=== PATIENT | female | born 1985 | race Caucasian/White ===

== ENCOUNTER 2018-04-15 16:34 | Emergency (ER) | payer BC ==
--- NOTE | 2018-04-15 16:47 | ERPHSYRPT ---
- History of Present Illness Source: patient <LATRICE ESPAÑA - Last Filed: 04/15/18 18:42> <EMILY COATS - Last Filed: 04/15/18 20:56> - History of Present Illness Time Seen by Provider: 04/15/18 16:45 Physician History: mild to mod blood in urine and frequency, lower abdominal cramps, no injury, no fever, no NV, hx renal stones, lmp 5/ (LATRICE ESPAÑA) Allergies/Adverse Reactions: No Known Drug Allergies Allergy (Verified 04/15/18 16:53) - Review of Systems Constitutional: No Fever Eyes: No Vision Changes Ears, Nose, & Throat: No Epistaxis Respiratory: No Dyspnea Cardiac: No Chest Pain Abdominal/Gastrointestinal: Abdominal Pain, No Vomiting Genitourinary Symptoms: Frequency, Hematuria Musculoskeletal: No Back Pain Neurological: No Dizziness <LATRICE ESPAÑA - Last Filed: 04/15/18 18:42> - Physical Exam General Appearance: no apparent distress Ears, Nose, Throat Exam: moist mucous membranes Respiratory Exam: No respiratory distress Gastrointestinal/Abdomen Exam: soft, No distention, No rebound Back Exam: No CVA tenderness Extremity Exam: normal range of motion Neurologic Exam: alert, oriented x 3, cooperative Skin Exam: warm, dry <LATRICE ESPAÑA - Last Filed: 04/15/18 18:42> - Nursing Vital Signs Nursing Vital Signs: Initial Vital Signs Temperature 97.9 F 04/15/18 16:37 Pulse Rate 71 04/15/18 16:37 Blood Pressure 129/93 04/15/18 16:37 O2 Sat by Pulse Oximetry 100 04/15/18 16:37 Pain Scale Pain Intensity 4 - CT Exams Abdomen/Pelvis CT Interpretation: Tele-radiologist Report, Other (mild urinary wall thickening ; possible cystitis. no kidney stones. per Dr German. small amt of fluid in cul-de- sac from possible ruptured or leaking cyst.) <EMILY COATS - Last Filed: 04/15/18 20:56> Ordered Tests: Active Orders 24 hr Category Date Time Status ABDOMEN AND PELVIS W/0 CONTRAS [CT] Stat Exams 04/15/18 18:23 Taken CBC W DIFF Stat Lab 04/15/18 16:57 Completed CMP Stat Lab 04/15/18 16:57 Completed CULTURE,URINE Stat Lab 04/15/18 16:50 Received HCG QUALITATIVE,SERUM Stat Lab 04/15/18 16:57 Completed UA W/ MICROSCOPIC Stat Lab 04/15/18 16:50 Completed Medication Summary Discontinued Medications Generic Name Dose Route Start Last Admin Trade Name Ilene PRN Reason Stop Dose Admin Ketorolac Tromethamine Confirm 04/15/18 18:37 Toradol 30 Mg Injection Administered 04/15/18 18:38 Dose 30 mg .ROUTE .STK-MED ONE Ketorolac Tromethamine 30 mg 04/15/18 18:43 04/15/18 18:47 Toradol 30 Mg Injection IM 04/15/18 18:44 30 mg STAT ONE Administration Lab/Rad Data: Laboratory Result Diagrams 04/15/18 16:57 04/15/18 16:57 Laboratory Results 04/15/18 04/15/18 04/15/18 Range/Units 16:57 16:57 16:57 WBC 9.2 (4.0-10.5) K/mm3 RBC 4.88 (4.1-5.4) M/mm3 Hgb 12.8 (12.0-16.0) gm/dl Hct 39.3 (35-47) % MCV 80.5 (78-100) fl MCH 26.2 (26-32) pg MCHC 32.6 (32-36) g/dl RDW 15.2 H (11.5-14.0) % Plt Count 328 (150-450) K/mm3 MPV 9.9 H (6-9.5) fl Gran % 73.7 H (36.0-66.0) % Eos # (Auto) 0.16 (0-0.5) Absolute Lymphs (auto) 1.80 (1.0-4.6) Absolute Monos (auto) 0.42 (0.0-1.3) Lymphocytes % 19.6 L (24.0-44.0) % Monocytes % 4.6 (0.0-12.0) % Eosinophils % 1.7 (0.00-5.0) % Basophils % 0.4 (0.0-0.4) % Absolute Granulocytes 6.76 (1.4-6.9) Basophils # 0.04 (0-0.4) Sodium 141 (137-145) mmol/L Potassium 3.7 (3.5-5.1) mmol/L Chloride 103 (98-107) mmol/L Carbon Dioxide 27 (22-30) mmol/L Anion Gap 14.1 (5-15) MEQ/L BUN 16 (7-17) mg/dL Creatinine 0.77 (0.52-1.04) mg/dL Estimated GFR > 60.0 ML/MIN Glucose 100 (74-106) mg/dL Calcium 9.7 (8.4-10.2) mg/dL Total Bilirubin 0.40 (0.2-1.3) mg/dL AST 27 (14-36) U/L ALT 27 (0-35) U/L Alkaline Phosphatase 70 (38-126) U/L Serum Total Protein 7.8 (6.3-8.2) g/dL Albumin 4.7 (3.5-5.0) g/dL Serum , Qual NEGATIVE (Negative) Ur Collection Type Urine Color (YELLOW) Urine Appearance (CLEAR) Urine pH (5-6) Ur Specific Russell (1.005-1.025) Urine Protein (Negative) Urine Ketones (NEGATIVE) Urine Blood (0-5) Charbel/ul Urine Nitrite (NEGATIVE) Urine Bilirubin (NEGATIVE) Urine Urobilinogen (0-1) mg/dL Ur Leukocyte Esterase (NEGATIVE) Urine Microscopic RBC (0-2) /HPF Urine Microscopic WBC (0-5) /HPF Urine Bacteria (NEGATIVE) /HPF Urine Culture Reflexed (NO) Urine Glucose (NEGATIVE) mg/dL Specimen Received 04/15/18 Range/Units 16:50 WBC (4.0-10.5) K/mm3 RBC (4.1-5.4) M/mm3 Hgb (12.0-16.0) gm/dl Hct (35-47) % MCV (78-100) fl MCH (26-32) pg MCHC (32-36) g/dl RDW (11.5-14.0) % Plt Count (150-450) K/mm3 MPV (6-9.5) fl Gran % (36.0-66.0) % Eos # (Auto) (0-0.5) Absolute Lymphs (auto) (1.0-4.6) Absolute Monos (auto) (0.0-1.3) Lymphocytes % (24.0-44.0) % Monocytes % (0.0-12.0) % Eosinophils % (0.00-5.0) % Basophils % (0.0-0.4) % Absolute Granulocytes (1.4-6.9) Basophils # (0-0.4) Sodium (137-145) mmol/L Potassium (3.5-5.1) mmol/L Chloride (98-107) mmol/L Carbon Dioxide (22-30) mmol/L Anion Gap (5-15) MEQ/L BUN (7-17) mg/dL Creatinine (0.52-1.04) mg/dL Estimated GFR ML/MIN Glucose (74-106) mg/dL Calcium (8.4-10.2) mg/dL Total Bilirubin (0.2-1.3) mg/dL AST (14-36) U/L ALT (0-35) U/L Alkaline Phosphatase (38-126) U/L Serum Total Protein (6.3-8.2) g/dL Albumin (3.5-5.0) g/dL Serum , Qual (Negative) Ur Collection Type VOID Urine Color PINK (YELLOW) Urine Appearance CLEAR (CLEAR) Urine pH 6.0 (5-6) Ur Specific Russell 1.005 (1.005-1.025) Urine Protein TRACE (Negative) Urine Ketones NEGATIVE (NEGATIVE) Urine Blood 250 (0-5) Charbel/ul Urine Nitrite NEGATIVE (NEGATIVE) Urine Bilirubin NEGATIVE (NEGATIVE) Urine Urobilinogen NORMAL (0-1) mg/dL Ur Leukocyte Esterase 1+ (NEGATIVE) Urine Microscopic RBC >100 (0-2) /HPF Urine Microscopic WBC 5-10 (0-5) /HPF Urine Bacteria FEW (NEGATIVE) /HPF Urine Culture Reflexed YES (NO) Urine Glucose NEGATIVE (NEGATIVE) mg/dL Specimen Received 04/15/18 1650 <LATRICE ESPAÑA - Last Filed: 04/15/18 18:42> - Progress Progress: improved Counseled pt/family regarding: lab results, diagnosis, rad results <EMILY COATS - Last Filed: 04/15/18 20:56> - Progress Progress Note: 04/15/18 18:[address] Coats at 19:00 (LATRICE ESPAÑA) 04/15/18 19:20 Pt care discussed and care accepted from Dr España at 19:00. (EMILY COATS) <LATRICE ESPAÑA - Last Filed: 04/15/18 18:42> - Departure Time of Disposition: 20:51 Departure Disposition: Home Critical Care Time: No <EMILY COATS - Last Filed: 04/15/18 20:56> - Departure Clinical Impression: Urinary tract infection with hematuria Condition: Stable Referrals: DOMINIC MASCORRO MD [Primary Care Provider] - Additional Instructions: You have a UTI with blood in your urine. You were given Toradol 30 mg and Rocephin 1 g by IM in the ER. Continue with Keflex 500 mg 4 times a day for 7 days. Use Azo for comfort as directed on the [id number] box. Take Tylenol and ibuprofen as needed. If her condition worsens, either return to the ER or follow-up with your primary medical doctor. Prescriptions: Cephalexin Mh 500 mg [Keflex 500 mg] 1 cap PO QID #28 capsule
[2018-04-15 16:53] VITALS: BP 129/93; PULSE 71; O2SAT 100
[2018-04-15 16:59] LABS: BASOPHIL % 0.4 % (0.0-0.4); Basophil (Absolute #) 0.04 (0-0.4); Eosinophil % 1.7 % (0.00-5.0); Eosinophil (Absolute #) 0.16 (0-0.5); Granulocyte Absolute (ANC) 6.76 (1.4-6.9); Granulocytes % 73.7 % (36.0-66.0); Hematocrit 39.3 % (35-47); Hemoglobin 12.8 gm/dl (12.0-16.0); Lymphocytes % 19.6 % (24.0-44.0); Mean Cell Volume 80.5 fl (78-100); Mean Corpuscular Hemoglobin 26.2 pg (26-32); Mean Corpuscular Hgb Concent. 32.6 g/dl (32-36); Mean Platelet Volume 9.9 fl (6-9.5); Monocyte (Absolute #) 0.42 (0.0-1.3); Monocytes % 4.6 % (0.0-12.0); Platelet Count 328 K/mm3 (150-450); Red Blood Count 4.88 M/mm3 (4.1-5.4); Red Cell Distribution Width 15.2 % (11.5-14.0); White Blood Count 9.2 K/mm3 (4.0-10.5)
[2018-04-15 17:18] LABS: Appearance CLEAR (CLEAR); Bilirubin NEGATIVE (NEGATIVE); Blood 250 Ery/ul (0-5); Glucose NEGATIVE (NEGATIVE); Ketones NEGATIVE (NEGATIVE); Leukocyte Esterase 1+ (NEGATIVE); Nitrite NEGATIVE (NEGATIVE); Protein,Urine Dip TRACE (Negative); Specific Gravity 1.005 (1.005-1.025); Urobilinogen NORMAL mg/dL (0-1)
[2018-04-15 17:19] LABS: Bacteria FEW /HPF (NEGATIVE); RBC >100 /HPF (0-2)
[2018-04-15 17:26] LABS: ALBUMIN 4.7 g/dL (3.5-5.0); ALKALINE PHOSPHATASE 70 U/L (38-126); ANION GAP 14.1 MEQ/L (5-15); BLOOD UREA NITROGEN 16 mg/dL (7-17); CHLORIDE 103 mmol/L (98-107); Calcium 9.7 mg/dL (8.4-10.2); Carbon Dioxide 27 mmol/L (22-30); Creatinine 1 0.77 mg/dL (0.52-1.04); Glucose 100 mg/dL (74-106); Potassium 3.7 mmol/L (3.5-5.1); SGOT/AST 27 U/L (14-36); SGPT/ALT 27 U/L (0-35); SODIUM 141 mmol/L (137-145); Total Protein 7.8 g/dL (6.3-8.2)
[2018-04-15] MEDS ORDERED: TORAdol 30 mg Injection ONE (18:37)
[2018-04-15] MEDS ORDERED: TORAdol 30 mg Injection IM ONE (18:43)
[2018-04-15] MEDS ORDERED: Rocephin 500 MG INJ IM ONE (20:52)
[2018-04-15] MEDS ORDERED: Rocephin 1000 MG INJ ONE (20:56)
--- NOTE | 2018-04-16 08:41 | XRAY ---
Indication: Low back and pelvic pain. Hematuria. Multiple contiguous axial images obtained through the abdomen and pelvis without contrast as ordered. Comparison: None Lung bases are clear. Heart is not enlarged. Stomach demonstrates intraluminal layering of hyperdense material presumed ingested medication/bismuth. Noncontrasted bowel loops appear nonobstructed. Normal appendix. Small cul-de-sac fluid presumed from ruptured/leaking cyst. Gallbladder contracted without gallstones. Urinary bladder is nominally distended with circumferential wall thickening either from incomplete distention versus cystitis. Remaining liver, pancreas, spleen, adrenal glands, kidneys, ureters, uterus, and aorta appear unremarkable for noncontrast exam. Osseous structures intact. Impression: 1. Urinary bladder wall thickening either incomplete distention versus cystitis. Correlate clinically. 2. Cul-de-sac fluid presumed physiologic from ruptured/leaking cyst. 3. Remaining CT abdomen/pelvis without contrast exam is negative. CT DI 12.19
== END 2018-04-15 21:21 | disposition home or self-care (01) ==
LOC: ED 16:34
DX: N39.0 Urinary tract infection, site not specified (principal); R10.30 Lower abdominal pain, unspecified
CPT/HCPCS: 36415; 74176; 80053; 81000; 84703; 85025; 87077; 87086; 87186; 96372; 99284; J0696; J1885